=== PATIENT | female | born 1975 | race Two or more races ===

== ENCOUNTER 2023-05-30 22:27 | Emergency (ER) | payer OTHER ==
[~2023-05-30] VITALS: Ht 167.6 cm; Wt 61.2 kg
[2023-05-30] MEDS ORDERED: ACETAMINOPHEN ES 500 MG TABLET ONE (22:55)
[2023-05-30] MEDS ORDERED: IBUPROFEN 400 MG TABLET ONE (22:55)
[2023-05-30] MEDS ORDERED: ACETAMINOPHEN ES 500 MG TABLET PO ONE (23:00)
[2023-05-30] MEDS ORDERED: IBUPROFEN 400 MG TABLET PO ONE (23:00)
[2023-05-30 23:57] VITALS: BP 119/68; TEMP 98; O2SAT 99
== END 2023-05-30 23:59 | disposition home or self-care (01) ==
LOC: ER 22:29
DX: S63.591A Other specified sprain of right wrist, initial encounter (principal); I10 Essential (primary) hypertension; W01.0XXA Fall on same level from slipping, tripping and stumbling without subsequent striking against object, initial encounter; Y93.89 Activity, other specified; Y92.89 Other specified places as the place of occurrence of the external cause; Y99.8 Other external cause status
CPT/HCPCS: 73110; 73130-TC